=== PATIENT | female | born 1980 | race African-American/Black ===

== ENCOUNTER 2016-07-31 11:43 | Emergency (ER) | payer MEDICAID, OTHER ==
[~2016-07-31] VITALS: Ht 154.9 cm; Wt 90.7 kg
[2016-07-31 13:10] VITALS: BP 112/81
== END 2016-07-31 13:51 | disposition home or self-care (01) ==
LOC: ER 11:43
DX: J20.9 Acute bronchitis, unspecified (principal); J02.9 Acute pharyngitis, unspecified

== ENCOUNTER 2017-05-11 00:01 | Emergency (ER) | payer MEDICAID ==
[~2017-05-11] VITALS: Ht 157.5 cm; Wt 81.6 kg
[2017-05-11 00:50] LABS: Urine Bacteria FEW /hpf (None Seen); Urine Blood Negative /uL (Negative); Urine Mucus FEW (None Seen); Urine Specific Gravity 1.023 (1.001-1.035); Urine WBC 1 /hpf (0 - 5)
[2017-05-11 00:59] VITALS: BP 132/96
== END 2017-05-11 04:15 | disposition home or self-care (01) ==
LOC: ER 00:06
DX: D17.9 Benign lipomatous neoplasm, unspecified (principal); H60.90 Unspecified otitis externa, unspecified ear; R06.02 Shortness of breath
CPT/HCPCS: 71045; 71250; 81001; 81025

== ENCOUNTER 2017-09-25 19:09 | Emergency (ER) | payer MEDICAID ==
[~2017-09-25] VITALS: Ht 157.5 cm; Wt 113.4 kg
[2017-09-25 20:49] LABS: Basophils # (auto) 0 uL; Basophils % (auto) 0.3 % (0.0-2.0); Eosinophils # (auto) 0.1 uL; Eosinophils % (auto) 1.7 % (0.0-7.0); Hematocrit 35.4 % (36.0-46.0); Hemoglobin 11.3 g/dL (12.2-16.2); Lymphocytes # (auto) 2.4 uL; Lymphocytes % (auto) 31.1 % (10.0-50.0); Mean Corpuscular Hemoglobin 27.3 pg (28.0-32.0); Mean Corpuscular Hgb Conc. 31.9 g/dL (32.0-36.0); Mean Corpuscular Volume 85.5 fL (80.0-100.0); Monocytes # (auto) 0.7 uL; Monocytes % (auto) 9.3 % (0.0-12.0); Neutrophils # (auto) 4.5 uL; Neutrophils % (auto) 57.6 % (37.0-80.0); Nucleated Red Blood Cells % 0.1 %; Platelet Count (auto) 270 10^3/uL (140-450); Red Blood Cells 4.14 10^6/uL (4.0-5.20); Red Cell Distribution Width 16.8 % (11.8-14.3); White Blood Cell 7.8 10^3/uL (4.4-10.8)
[2017-09-25 20:57] LABS: Alanine Aminotransferase 22 U/L (13-56); Albumin 3.3 g/dL (3.4-5.0); Anion Gap 11 (5-15); Aspartate Aminotransferase 18 U/L (15-37); Blood Urea Nitrogen 8 mg/dL (7-18); Calcium 8.5 mg/dL (8.5-10.1); Carbon Dioxide 22 mmol/L (21-32); Chloride 109 mmol/L (98-107); GFR African American 116 mL/min; GFR Non-African American 96 mL/min; Glucose 93 mg/dL (74-106); Lipase 150 U/L (73-393); Potassium 3.6 mmol/L (3.5-5.1); Sodium 142 mmol/L (136-145)
[2017-09-25 20:59] LABS: Alkaline Phosphatase 99 U/L (45-117); Bilirubin, Total < 0.1 mg/dL (0.2-1.0); Total Protein 7.4 g/dL (6.4-8.2)
[2017-09-26 03:04] LABS: Urine WBC None Seen /hpf (0 - 5)
[2017-09-26 03:15] LABS: Urine Amorphous Crystal MANY /hpf (None Seen); Urine Bacteria NONE SEEN /hpf (None Seen); Urine Blood Negative /uL (Negative); Urine Mucus FEW (None Seen); Urine Specific Gravity 1.029 (1.001-1.035)
[2017-09-26 04:00] VITALS: BP 110/65
== END 2017-09-26 05:42 | disposition home or self-care (01) ==
LOC: ER 19:09
DX: K40.20 Bilateral inguinal hernia, without obstruction or gangrene, not specified as recurrent (principal); D17.9 Benign lipomatous neoplasm, unspecified; E66.01 Morbid (severe) obesity due to excess calories; Z68.42 Body mass index [BMI] 45.0-49.9, adult
CPT/HCPCS: 36415; 74176; 80053; 81001; 83690; 84702; 85025

== ENCOUNTER 2019-02-19 19:53 | Emergency (ER) | payer MEDICAID ==
[~2019-02-19] VITALS: Ht 157.5 cm; Wt 103.9 kg
[2019-02-19] MEDS ORDERED: PHENAZOPYRIDINE HCL 100 MG TAB PO ONE ×2 (23:00)
[2019-02-19] MEDS ORDERED: cefTRIAXone SOD 1,000 MG VL IM ONE (23:00)
[2019-02-19 23:03] VITALS: BP 136/88
[2019-02-19] MEDS ORDERED: FLUCONAZOLE 100 MG TAB PO ONE (23:15)
== END 2019-02-20 00:17 | disposition home or self-care (01) ==
LOC: ER 19:53
DX: N39.0 Urinary tract infection, site not specified (principal)
CPT/HCPCS: 81025; 96372; 99283; J0696